=== PATIENT | male | born 1965 | race African-American/Black ===

== ENCOUNTER 2016-10-10 10:53 | Inpatient (IN) | payer OTHER ==
--- NOTE | ~2016-10-10 | H ---
[facility] [place] [address] HISTORY AND PHYSICAL Name: JEANETH PARKS Room #: 420-P [facility] IN M.R.#: [id number] Admission: 10/10/16 Attend Phys: Clinton Dacosta MD Discharge: 10/11/16 Date of : 67 Report #: [id number] THIS REPORT FOR: //name// CC: NAFISA physician/PCP Clinton Dacosta DATE OF SERVICE: 10/10/2016 CHIEF COMPLAINT: Bilateral feet blisters and pain. HISTORY OF PRESENT ILLNESS: The patient is a 50-year-old man with history of diabetes mellitus type 2 and hypertension, who was diagnosed with fungal infection of bilateral toes about 2 months ago. The patient has been on and off antifungal medications, as well as on topical treatment. The patient states that he did not have any improvement. Last week, the patient developed blisters, that became progressively painful. The patient also reports possible oozing from the toes. He was seen by thread marker today, and he was admitted here from the office for further evaluation and treatment. The patient was already seen and evaluated by shop lead, who did the biopsy of the feet lesions, and recommended treatment with prednisone. The patient and family members are extremely frustrated. The patient is unable to walk last few days due to pain secondary to blisters, and he cannot go to work. He wants answers about his medical condition. He considers hypertension and diabetes are stable. Last few days, the patient also developed skin rash, and now he has itching. Mostly, his rash is in hands and on forearms. He has no other complaints. PAST MEDICAL HISTORY: 1. Hypertension. 2. Diabetes mellitus type 2, unclear control. 3. History of gout. 4. Dyslipidemia. HOME MEDICATIONS: Amlodipine 10 mg a day, Lipitor 20 mg a day, glyburide 2.5 mg a day, lisinopril 10 mg a day, Meloxicam 7.5 mg a day, metformin 1000 mg b.i.d., tramadol 50 mg every 4 hours as needed, and allopurinol 100 mg a day. FAMILY HISTORY: Reviewed and not pertinent to the patient's current condition. SOCIAL HISTORY: The patient does not smoke cigarettes. He drinks socially. [facility] [address] [place] [address] HISTORY AND PHYSICAL Name: JEANETH PARKS Room #: [address] [place] [address] [place] .R.#: [id number] Admission: 10/10/16 Attend Phys: Clinton Dacosta MD Discharge: 10/11/16 Date of : 67 Report #: [id number] REVIEW OF SYSTEMS: As above in HPI section, all others negative. PHYSICAL EXAMINATION: GENERAL: The patient is a healthy looking young man. VITAL SIGNS: His blood pressure is 126/98, heart rate is 102, respiration is 18, and temperature is 98.3. HEENT: Pupils are equal. Eye movements are normal. Sclerae are anicteric. Oral mucosa is moist. Ear examination is deferred. NECK: Supple. The patient has no thyromegaly. He has no JVD. Carotid bruits are not appreciated. RESPIRATORY: Chest moves symmetrically with breathing. LUNGS: Clear to auscultation bilaterally. CARDIOVASCULAR: The patient has regular rhythm and rate. He has no murmurs, gallops, or rubs. GASTROINTESTINAL: Abdomen is soft, nondistended and nontender. Bowel sounds are present. He has no hepatomegaly or splenomegaly. MUSCULOSKELETAL: There is no edema, cyanosis, or clubbing. NEUROLOGIC: Grossly intact. He has no motor or sensory deficits. SKIN: The patient has blisters on the toes and feet. He has macular rash mostly on the forearms and hands. LABS: Urinalysis is unremarkable. He has trace protein. Other labs are not available. ASSESSMENT AND PLAN: 1. Blisters on bilateral toes and feet, as well as skin rash. As noted, the condition has been going on for last 2 months, that has worsened. Etiology is unclear. [employer] consultation is very much appreciated. Biopsies were taken, and a shop lead recommended treatment of the patient with prednisone, taper off regimen. This will be initiated. 2. Pain and itching due to above. The patient will be treated symptomatically. 3. Diabetes mellitus type 2. Unclear controlled. We are checking hemoglobin A1c. Oral medications will be resumed. We will treat the patient with sliding scale insulin as necessary. 4. Hypertension. Acceptable control. Home medications will be continued unchanged. <ELECTRONICALLY SIGNED> By: Clinton Dacosta MD 10/17/16 [id number] Clinton Dacosta MD /nt
--- NOTE | ~2016-10-10 | D ---
[facility] [place] [address] DISCHARGE SUMMARY Name: JEANETH PARKS Room #: 420-P [facility] IN M.R.#: [id number] Admission: 10/10/16 Attend Phys: Clinton Dacosta MD Discharge: 10/11/16 Date of : 67 Report #: [id number] THIS REPORT FOR: //name// CC: NAFISA physician/PCP Clinton Dacosta DATE OF SERVICE: 10/11/2016 HISTORY OF PRESENT ILLNESS: The patient is a 50-year-old man who was admitted to the hospital from the inspector coated fabrics's office for bilateral feet blisters and pain. Please refer to the admission H and P for details. In brief, the patient has been treated for presumed fungal infection, but he did not get better. In fact, he developed blisters shortly before admission, as well as pain. He has had also rash in forearms and hands. HOSPITALIZATION COURSE: The patient was hospitalized at [facility]. He had no acute conditions, except the worsening his feet blisters. Pharmacy District Manager was consulted. Biopsies were taken, and the patient was recommended to be treated with steroids, taper off regimen over next 16 days. The patient was also seen by Infectious Disease specialist, who recommended discontinuation of chronic medication as much as possible. Metformin, glyburide, and allopurinol will be held. The patient will be treated with insulin as needed, and he will be educated about insulin before he goes home. He will be prescribed Humalog 10. Currently, the patient is slightly better. He worked with a physical therapist, and he is using walker. He will see a molded frames assembler in about 1 week, so that he can follow up biopsy results, and formulate the treatment plan. Currently, the patient's condition medically stable for him to go home. DISCHARGE DIAGNOSES: 1. Bilateral feet blisters, as well as skin rash mostly on forearms and hands. Likely allergic reaction. Cause is unclear. Details as above. Skin biopsies were taken, and the patient will be treated with prednisone and will follow up with a molded frames assembler. 2. Diabetes mellitus type 2, unclear control. Hemoglobin A1c is pending. Glyburide and metformin is discontinued, for rare possibility of allergic reaction. The patient will be treated with insulin for now. 3. Hypertension. Acceptable control. DISPOSITION: The patient is discharged home. DISCHARGE MEDICATIONS: Please refer to the medication reconciliation list. The patient is advised to discuss with primary care physician alternative treatment for gout, and substitute the allopurinol for different agent. [address] [address] DISCHARGE SUMMARY Name: JEANETH PARKS Room #: 420-P [facility] IN [facility]#: [id number] Admission: 10/10/16 Attend Phys: Clinton Dacosta MD Discharge: 10/11/16 Date of : 67 Report #: [id number] FOLLOWUP PLAN: The patient has a followup appointment with molded frames assembler next week. He will also follow up with inspector coated fabrics as scheduled. I spent more than 30 minutes to coordinate the patient's discharge, including lengthy discussion with the patient and family members. <ELECTRONICALLY SIGNED> By: Clinton Dacosta MD 10/17/16 2227 [id number] Clinton Dacosta MD /nt
[~2016-10-10 10:53] MED LIST: ALLOPURINOL 10100 M2 PO; DOXYCYCLINE 10100 MG PO; GLYBURIDE 2.52.5 MG PO; LIPITOR 20 MG T20 M1 PO; LISINOPRIL10 MG PO; MELOXICAM7.5 MG PO; METFORMIN HCL1000 M1 PO; NORVASC10 MG PO; TRAMADOL 50 MG50 MG PO
[2016-10-10 11:19] VITALS: BP 126/98
[2016-10-10 11:52] LABS: URINE BILIRUBIN NEGATIVE (Negative); URINE BLOOD NEGATIVE (Negative); URINE COLOR YELLOW; URINE GLUCOSE-RANDOM* NEGATIVE (Negative); URINE KETONES NEGATIVE (Negative); URINE LEUKOCYTES-REFLEX NEGATIVE (Negative); URINE PROTEIN (DIPSTICK) TRACE (Negative); URINE SPECIFIC GRAVITY >= 1.030 (1.003-1.035); URINE UROBILINOGEN 0.2 E.U./dl (0.2-1.0)
[2016-10-10 15:37] VITALS: BP 128/96
[2016-10-10 20:12] VITALS: BP 128/83
[2016-10-11 04:33] VITALS: BP 135/90
[2016-10-11 05:32] LABS: ABSOLUTE NEUTROPHILS 6.2 thou/uL (1.4-8.2); BASOPHILS 0.3 % (0.0-2.0); EOSINOPHILS 0.2 % (0.0-3.0); HEMATOCRIT 43.5 % (42.0-52.0); HEMOGLOBIN 14.6 gm/dL (14.0-18.0); LYMPHOCYTES 21.5 % (24.0-44.0); MCH 29.3 pg (26.0-34.0); MCHC 33.6 g/dL (28.0-37.0); MCV 87.1 fL (80.0-100.0); MONOCYTES 5.3 % (1.0-8.0); PLATELET COUNT 232 thou/uL (150-400); POLYS 72.7 % (36.0-66.0); RBC 4.99 mil/uL (4.50-6.00); RDW 12.9 % (10.5-14.5); WBC 8.6 thou/uL (4.0-11.0)
[2016-10-11 05:40] LABS: MANUAL DIFF NO
[2016-10-11 05:52] LABS: ALBUMIN 3.4 g/dL (3.4-5.0); CALCIUM 9.4 mg/dL (8.5-10.1); CREATININE 1.1 mg/dL (0.7-1.3); POTASSIUM 4.4 mmol/L (3.5-5.1); TOTAL BILIRUBIN 0.5 mg/dL (<0.1-1.0); TOTAL PROTEIN 7.5 g/dL (6.4-8.2)
[2016-10-11 07:55] VITALS: BP 133/94
[2016-10-11] MEDS ORDERED: PREDNISONE 10 M10 MG PO (15:16)
[2016-10-11] MEDS ORDERED: BANOPHEN12.5 MG/5 PO (15:16)
[2016-10-11] MEDS ORDERED: HUMALOG100 UNIT/1 SUBQ (15:16)
[2016-10-11 16:23] VITALS: BP 133/94
[2016-10-12 03:07] LABS: GLYCOHEMOGLOBIN (HGB A1C) 7.6 % (4.8-5.6)
== END 2016-10-11 17:14 | disposition home or self-care (01) | DRG 607 ==
LOC: 4E 10:53
PROVIDERS: Internal Medicine Endocrinology, Diabetes & Metabolism
DX: S90.425A Blister (nonthermal), left lesser toe(s), initial encounter (principal); R21 Rash and other nonspecific skin eruption; E11.9 Type 2 diabetes mellitus without complications; I10 Essential (primary) hypertension; E78.5 Hyperlipidemia, unspecified; M10.9 Gout, unspecified; S90.424A Blister (nonthermal), right lesser toe(s), initial encounter; X58.XXXA Exposure to other specified factors, initial encounter; Y93.89 Activity, other specified; Y92.89 Other specified places as the place of occurrence of the external cause; Y99.8 Other external cause status; Z88.6 Allergy status to analgesic agent; Z79.4 Long term (current) use of insulin
CPT/HCPCS: 10783

== ENCOUNTER → 2018-04-11 | Outpatient (CLI) | payer BC, OTHER ==
[~2018-04-11] MED LIST changes: +BANOPHEN12.5 MG/5 PO; +HUMALOG100 UNIT/1 SUBQ; +PREDNISONE 10 M10 MG PO
== END ==
LOC: HYPER 04-09 09:47
DX: S91.302A Unspecified open wound, left foot, initial encounter (principal); S91.301A Unspecified open wound, right foot, initial encounter; R21 Rash and other nonspecific skin eruption; E11.40 Type 2 diabetes mellitus with diabetic neuropathy, unspecified; E66.9 Obesity, unspecified; E78.5 Hyperlipidemia, unspecified; B35.3 Tinea pedis; I10 Essential (primary) hypertension; M10.9 Gout, unspecified; Z68.41 Body mass index [BMI] 40.0-44.9, adult; X58.XXXA Exposure to other specified factors, initial encounter; Y93.89 Activity, other specified; Y92.89 Other specified places as the place of occurrence of the external cause; Y99.8 Other external cause status

== ENCOUNTER → 2020-01-17 | Outpatient (CLI) | payer BC, OTHER ==
[~2020-01-17] MED LIST changes: +ALLEGRA ALLERG180 MG PO; +ALLOPURINOL 10100 M3 PO; +DICLOFENAC SODI75 MG PO; +DILTIAZEM ER240 M2 PO; +FINASTERIDE5 MG PO; +GLUCOPHAGE1000 MG PO; +LIPITOR40 MG PO; +NEURONTIN100 MG PO; +SILDENAFIL CIT100 MG PO; +TYLENOL WITH CO1 TA1 PO; +VITAMIN D350 MCG PO; +ZESTRIL20 MG PO
== END ==
LOC: LAB 08:00
PROVIDERS: ATTEND Student in an Organized Health Care Education/Training Program
DX: Z01.812 Encounter for preprocedural laboratory examination (principal); Z11.59 Encounter for screening for other viral diseases

== ENCOUNTER 2020-01-22 08:20 | Day surgery (SDC) | payer BC, OTHER ==
[~2020-01-22] VITALS: Ht 180.3 cm; Wt 126.1 kg
--- NOTE | ~2020-01-22 | O ---
[facility] [place] [address] OPERATIVE REPORT Name: JEANETH PARKS Room #: [facility]-[address] [place] [address] M.R.#: [id number] Admission: 01/22/20 Attend Phys: Loi Camacho Discharge: Date of : 67 Report #: [id number] THIS REPORT FOR: cc: Nicky Alvarado MD, Sandra L. MD VanDenBerghe, Gregory R. MD ~ CC: Loi Alvarado DATE OF SERVICE: 01/22/2020 PREOPERATIVE DIAGNOSES: Right knee pain, effusion, medial meniscus tear, chondromalacia. 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 PROCEDURES PERFORMED: Right knee arthroscopy, partial medial and lateral meniscectomy, and tricompartmental chondroplasty. SURGEON: Loi Delgado MD MANAGER POOL: Yessi Hung PA-C. ANESTHESIA: General. FLUIDS: 600 mL of crystalloid. ESTIMATED BLOOD LOSS: Approximately 5 mL. TOURNIQUET TIME: Approximately 20 minutes at 300 mmHg. DESCRIPTION OF PROCEDURE: After proper identification of the patient and operative site in preoperative holding area, the operative site was signed by myself. Prophylactic antibiotics given. The patient elected to receive a general anesthetic. He was brought back to the operative suite after induction of satisfactory general anesthesia. The right knee was examined and mild effusion was noted. Knee was ligamentously stable. Tourniquet was applied to the upper thigh. Limb was placed in an arthroscopic leg dinh. The limb was then sterilely prepped and draped in the usual manner and then was exsanguinated with an Esmarch. Tourniquet was inflated to 300 mmHg. Superior medial portal was created for inflow purposes. Joint was inflated with an arthroscopic pump set at 35 mmHg. An anterolateral and then an anteromedial portal were created using a spinal needle for localization. Examination of suprapatellar pouch, medial and lateral gutters revealed some mild intra-articular synovitis, some [facility] [address] [place] [address] OPERATIVE REPORT Name: JEANETH PARKS Room #: 150-6 [facility] M.R.#: [id number] Admission: 01/22/20 Attend Phys: Loi Camacho Discharge: Date of : 67 Report #: [id number] fibrillation, fraying and some loose chondral flaps were noted on the more inferior aspect of the patella and this was carefully debrided with motorized shaver. Trochlear surface appeared intact. Medial and lateral gutters were free and clear of any loose bodies other than some mild synovitis. Examination of the medial compartment revealed a complex tear of the posterior horn of the medial meniscus that extended into the mid body. Combination of hand and motorized instrumentation was used to perform a partial medial meniscectomy. There also appeared to be a more radial aspect near the root attachment. Mild chondral thinning, small loose chondral flaps and fibrillated tissue was noted along the more posterior aspect of the medial femoral condyle and on the medial tibial plateau. These areas were carefully debrided. The remaining meniscus was stable to probing following the meniscectomy. Anterior and posterior cruciate ligaments were intact and stable to probing. Lateral compartment of the knee demonstrated several radial type tears within the mid body that were debrided with a combination of hand and motorized instrumentation. Some fibrillation and chondral softening was noted of the more medial aspect of the lateral tibial plateau and a chondroplasty was performed here as well. The knee was then thoroughly irrigated with normal saline. Portals closed with simple nylon stitch. A 20 mL of 0.2% Naropin was injected to aid in postoperative pain control. Sterile compressive dressing was applied. He was awakened and transferred to the recovery room in stable condition. By: [id number] Loi Delgado MD /nt
[2020-01-22 09:36] VITALS: BP 141/90
[2020-01-22 12:03] VITALS: BP 141/90
== END 2020-01-22 12:45 | disposition home or self-care (01) ==
LOC: TBA 08:20 → OR 08:20
PROVIDERS: ATTEND Orthopaedic Surgery Sports Medicine
DX: S83.241A Other tear of medial meniscus, current injury, right knee, initial encounter (principal); M25.461 Effusion, right knee; M25.561 Pain in right knee; M94.261 Chondromalacia, right knee; M65.88 Other synovitis and tenosynovitis, other site; M17.11 Unilateral primary osteoarthritis, right knee; Z79.899 Other long term (current) drug therapy; Z98.890 Other specified postprocedural states; X58.XXXA Exposure to other specified factors, initial encounter; Y93.89 Activity, other specified; Y92.89 Other specified places as the place of occurrence of the external cause; Y99.8 Other external cause status
CPT/HCPCS: 50010; 50101; 50405; 56526; 57103; 57180; 62110; 62900; 70005